=== PATIENT | male | born 2000 | race Caucasian/White ===

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

== ENCOUNTER 2018-03-06 15:41 | Inpatient (IN) | payer OTHER ==
[~2018-03-06] VITALS: Ht 165.1 cm; Wt 56.2 kg
[2018-03-06 15:45] VITALS: BP 123/81
[2018-03-06] MEDS ORDERED: predniSONE 20 MG TAB PO ONE (16:00)
[2018-03-06] MEDS ORDERED: ALBUTEROL SULFATE/IPRATROPIU 3 ML SOL IH ONE ×2 (16:00→18:45)
[2018-03-06] MEDS ORDERED: ALBUTEROL 0.083% 2.5 MG/3 ML NEBU INH ONE ×3 (16:00→19:25)
[2018-03-06] MEDS ORDERED: IBUPROFEN 600 MG TAB PO ONE (18:10)
[2018-03-06] MEDS ORDERED: IPRATROPIUM 0.02% 0.5 MG/2.5 ML NEBU INH ONE (19:25)
[2018-03-06] MEDS ORDERED: PRON INH (21:10)
[2018-03-06] MEDS ORDERED: DOCUSATE SODIUM 100 MG GELCAP PO PRN (21:15)
[2018-03-06] MEDS ORDERED: ALBUTEROL SULFATE/IPRATROPIU 3 ML SOL IH PRN (21:15)
[2018-03-06] MEDS ORDERED: HYDROcodone/APAP 7.5/325 MG 1 TAB PO PRN (21:15)
[2018-03-06] MEDS ORDERED: ONDANSETRON 4 MG/2 ML VIAL IM/IVP PRN (21:15)
[2018-03-06] MEDS ORDERED: ACETAMINOPHEN 325 MG TAB PO PRN (21:15)
[2018-03-06 21:48] LABS: BASOPHILS % (AUTO) 0.3 % (0.0-2.0); EOSINOPHILS % (AUTO) 0.1 % (0.0-4.0); HEMATOCRIT 48.7 % (36-52); HEMOGLOBIN 16.1 g/dL (12.0-18.0); LYMPHOCYTES # (AUTO) 0.3 K/uL (2.0-11.5); MEAN CORPUSCULAR HEMOGLOBIN 30 pg (27-31); MEAN CORPUSCULAR HGB CONC 33 g/dL (33-37); MEAN CORPUSCULAR VOLUME 90.6 fL (80-94); MONOCYTES % (AUTO) 0.3 % (1.7-9.3); NEUTROPHILS # (AUTO) 13.4 K/uL (1.8-7.7); NEUTROPHILS % (AUTO) 97.3 % (42.2-75.2); PLATELET COUNT (AUTO) 178 K/uL (140-450); RED BLOOD CELL COUNT(AUTO) 5.38 MIL/uL (4.20-6.10); RED CELL DISTRIBUTION WIDTH 13.1 % (11.6-13.7); WHITE BLOOD COUNT (AUTO) 13.8 K/uL (4.5-11.0)
[2018-03-06 22:00] VITALS: BP 117/75
[2018-03-06] MEDS ORDERED: FAMOTIDINE 20 MG/2 ML VIAL IV SCH (22:00)
[2018-03-06] MEDS ORDERED: LORATADINE 10 MG TAB PO SCH (22:00)
[2018-03-06 22:03] LABS: PROTHROMBIN TIME 9.9 secs (10.8-13.4)
[2018-03-06 22:05] LABS: ALBUMIN 4.4 g/dL (3.4-5.0); ANION GAP 18.9 (8-16); CARBON DIOXIDE 22.6 mmol/L (21-32); CREATININE 1.2 mg/dL (0.7-1.3); POTASSIUM 3.5 mmol/L (3.5-5.1)
[2018-03-06 22:12] LABS: CHOL/HDL RATIO 1.7 (1-4.5); FREE T4 (FREE THYROXINE) 1.16 ng/dL (0.76-1.46); PHOSPHORUS 2.2 mg/dL (2.5-4.9); THYROID STIMULATING HORMONE 0.69 uIU/mL (0.34-3.74)
[2018-03-06] MEDS: NACL 0.9% 1,000 ML IV SCH (22:24)
[2018-03-07] MEDS ORDERED: MAGNESIUM OXIDE 400 MG TAB PO SCH (00:30)
[2018-03-07] MEDS: ALBUTEROL SULFATE/IPRATROPIU 3 ML SOL IH SCH ×4 (01:18→19:44)
[2018-03-07 04:55] VITALS: BP 116/66
[2018-03-07] MEDS: methylPREDNISolone SS 125 MG/2 ML VIAL IVP SCH ×2 (05:07→13:51)
[2018-03-07] MEDS ORDERED: INSULIN LISPRO SLIDING SCALE 100 UNITS/ML VIAL SUBQ PRN (07:15)
[2018-03-07] MEDS ORDERED: DEXTROSE 50% 50 ML SYR IVP PRN (07:15)
[2018-03-07 07:30] LABS: BASOPHILS % (AUTO) 0.1 % (0.0-2.0); HEMATOCRIT 43.7 % (36-52); HEMOGLOBIN 14.5 g/dL (12.0-18.0); LYMPHOCYTES # (AUTO) 0.5 K/uL (2.0-11.5); MEAN CORPUSCULAR HEMOGLOBIN 30 pg (27-31); MEAN CORPUSCULAR HGB CONC 33 g/dL (33-37); MEAN CORPUSCULAR VOLUME 90.7 fL (80-94); MONOCYTES # (AUTO) 0.3 K/uL (0.8-1.0); MONOCYTES % (AUTO) 2.6 % (1.7-9.3); NEUTROPHILS % (AUTO) 92.3 % (42.2-75.2); PLATELET COUNT (AUTO) 181 K/uL (140-450); RED BLOOD CELL COUNT(AUTO) 4.82 MIL/uL (4.20-6.10); RED CELL DISTRIBUTION WIDTH 13.3 % (11.6-13.7); WHITE BLOOD COUNT (AUTO) 10.8 K/uL (4.5-11.0)
[2018-03-07] MEDS ORDERED: PNEUMOCOCCAL VACCINE 23 MCG/0.5 ML VIAL IMVAC SCH ×2 (07:30→10:00)
[2018-03-07] MEDS: BLOOD GLUCOSE MONITORING 1 DEV DEV FS SCH ×4 (07:30→21:41)
[2018-03-07 07:50] LABS: CARBON DIOXIDE 26.4 mmol/L (21-32); CREATININE 0.8 mg/dL (0.7-1.3); POTASSIUM 4.4 mmol/L (3.5-5.1)
[2018-03-07 08:00] VITALS: BP 112/60
[2018-03-07] MEDS ORDERED: SODIUM PHOS / POTASSIUM PHOS 1 PKT PDR PO SCH (08:57)
[2018-03-07] MEDS: LORATADINE 10 MG TAB PO SCH (09:49)
[2018-03-07] MEDS: MAGNESIUM OXIDE 400 MG TAB PO SCH (09:49)
[2018-03-07] MEDS: FAMOTIDINE 20 MG/2 ML VIAL IV SCH (09:49)
[2018-03-07] MEDS: NACL 0.9% 1,000 ML IV SCH (14:07)
[2018-03-07 16:00] VITALS: BP 110/48
[2018-03-07 18:24] LABS: BARBITURATE, URINE NEG. ng/ml (NEG <=200); BENZODIAZEPINE, URINE NEG. ng/mL (NEG <=200); CANNABINOID, URINE POS. ng/mL (NEG <=50); COCAINE, URINE NEG. ng/mL (NEG <=300); OPIATE, URINE NEG. ng/mL (NEG <=2000); PHENCYCLIDINE SCREEN,URINE NEG. ng/mL (NEG <=25)
[2018-03-07 20:00] VITALS: BP 115/58
[2018-03-07] MEDS: methylPREDNISolone SS 40 MG/ML VIAL IVP SCH (21:40)
[2018-03-08] MEDS: ALBUTEROL SULFATE/IPRATROPIU 3 ML SOL IH SCH ×3 (01:55→13:42)
[2018-03-08 04:00] VITALS: BP 110/58
[2018-03-08] MEDS: methylPREDNISolone SS 40 MG/ML VIAL IVP SCH (05:43)
[2018-03-08] MEDS: NACL 0.9% 1,000 ML IV SCH (06:31)
[2018-03-08] MEDS: BLOOD GLUCOSE MONITORING 1 DEV DEV FS SCH ×2 (07:35→11:30)
[2018-03-08 08:00] VITALS: BP 138/53
[2018-03-08] MEDS ORDERED: PRON INH (08:10)
[2018-03-08] MEDS ORDERED: ALBU0.0912 INH (08:13)
[2018-03-08] MEDS ORDERED: INFLUENZA VIRUS VACCINE QUAD 0.5 ML SYR IMVAC PRN (08:15)
[2018-03-08] MEDS ORDERED: PNEUMOCOCCAL VACCINE 23 MCG/0.5 ML VIAL IMVAC SCH (08:15)
[2018-03-08 08:20] LABS: HEMOGLOBIN 13.6 g/dL (12.0-18.0); LYMPHOCYTES # (AUTO) 0.8 K/uL (2.0-11.5); LYMPHOCYTES % (AUTO) 4.6 % (20.5-51.1); MEAN CORPUSCULAR HEMOGLOBIN 30 pg (27-31); MEAN CORPUSCULAR HGB CONC 33 g/dL (33-37); MEAN CORPUSCULAR VOLUME 92.3 fL (80-94); MONOCYTES # (AUTO) 0.8 K/uL (0.8-1.0); MONOCYTES % (AUTO) 5.1 % (1.7-9.3); NEUTROPHILS % (AUTO) 90.3 % (42.2-75.2); PLATELET COUNT (AUTO) 202 K/uL (140-450); RED BLOOD CELL COUNT(AUTO) 4.55 MIL/uL (4.20-6.10); WHITE BLOOD COUNT (AUTO) 16.6 K/uL (4.5-11.0)
[2018-03-08 09:19] LABS: ANION GAP 15.6 (8-16); CARBON DIOXIDE 23.5 mmol/L (21-32); CREATININE 0.8 mg/dL (0.7-1.3); POTASSIUM 4.1 mmol/L (3.5-5.1)
[2018-03-08 09:26] LABS: MAGNESIUM 1.9 mg/dL (1.8-2.4); PHOSPHORUS 3.8 mg/dL (2.5-4.9)
[2018-03-08] MEDS: FAMOTIDINE 20 MG/2 ML VIAL IV SCH (10:11)
[2018-03-08] MEDS: LORATADINE 10 MG TAB PO SCH (10:11)
[2018-03-08] MEDS: MAGNESIUM OXIDE 400 MG TAB PO SCH (10:11)
[2018-03-08 10:53] LABS: HEMATOCRIT 42.3 % (36-52); HEMOGLOBIN 13.7 g/dL (12.0-18.0); LYMPHOCYTES # (AUTO) 0.6 K/uL (2.0-11.5); MEAN CORPUSCULAR HEMOGLOBIN 30 pg (27-31); MEAN CORPUSCULAR HGB CONC 32 g/dL (33-37); MEAN CORPUSCULAR VOLUME 92.3 fL (80-94); MONOCYTES # (AUTO) 0.5 K/uL (0.8-1.0); MONOCYTES % (AUTO) 3.2 % (1.7-9.3); NEUTROPHILS # (AUTO) 13.8 K/uL (1.8-7.7); NEUTROPHILS % (AUTO) 92.8 % (42.2-75.2); PLATELET COUNT (AUTO) 195 K/uL (140-450); RED BLOOD CELL COUNT(AUTO) 4.59 MIL/uL (4.20-6.10); RED CELL DISTRIBUTION WIDTH 13.5 % (11.6-13.7); WHITE BLOOD COUNT (AUTO) 14.8 K/uL (4.5-11.0)
[2018-03-08 11:09] LABS: APPEARANCE,URINE CLEAR (CLEAR); BILIRUBIN,URINE NEGATIVE (NEGATIVE); BLOOD, URINE NEGATIVE (NEGATIVE); COLOR,URINE YELLOW (YELLOW); LEUKOCYTE ESTERASE ,URINE NEGATIVE (NEGATIVE); NITRITE, URINE NEGATIVE (NEGATIVE); PH,URINE 6.5 (5.0-9.0); UGLUCOSE NEGATIVE (NEGATIVE)
== END 2018-03-08 14:10 | disposition home or self-care (01) | DRG 141 ==
LOC: MED 15:41 → MTU 21:14
PROVIDERS: ADMIT General Practice; ATTEND General Practice
PROC: 3E0234Z Introduction of Serum, Toxoid and Vaccine into Muscle, Percutaneous Approach (ICD-10-PCS; principal; 2018-03-08)
PROC: 3E02340 Introduction of Influenza Vaccine into Muscle, Percutaneous Approach (ICD-10-PCS; 2018-03-08)
DX: J45.901 Unspecified asthma with (acute) exacerbation (principal); E87.3 Alkalosis; E83.39 Other disorders of phosphorus metabolism; E11.65 Type 2 diabetes mellitus with hyperglycemia; F90.9 Attention-deficit hyperactivity disorder, unspecified type; D72.829 Elevated white blood cell count, unspecified; E80.6 Other disorders of bilirubin metabolism; E78.2 Mixed hyperlipidemia; F43.9 Reaction to severe stress, unspecified; T38.0X5A Adverse effect of glucocorticoids and synthetic analogues, initial encounter; Y92.89 Other specified places as the place of occurrence of the external cause; Z23 Encounter for immunization; Z79.899 Other long term (current) drug therapy; Z88.8 Allergy status to other drugs, medicaments and biological substances; Z79.84 Long term (current) use of oral hypoglycemic drugs
CPT/HCPCS: 36415; 36600; 71045; 76700; 80048; 80053; 80305; 81003; 82150; 82803; 82948; 83036; 83690; 83735; 83880; 84100; 84436; 84439; 84443; 84479; 84484; 85025; 85610; 85730; 87081; 90658; 90732; 93005; 94640; 99285; J1815; J2920; J2930; J3490; J7030; J7512; J7613; J7620; J7644; Q0092

== ENCOUNTER 2018-05-26 17:55 | Emergency (ER) | payer OTHER ==
[~2018-05-26] VITALS: Ht 165.1 cm; Wt 59.0 kg
[~2018-05-26 17:55] MED LIST changes: +ALBU0.0912 INH; +PRON INH
[2018-05-26 18:19] VITALS: BP 105/59
--- NOTE | 2018-05-26 18:20 | NUR ---
BIB MOTHER C/O LEFT UPPER BACK PAIN X TODAY. AAOX4. PT STATES PAIN OF 10/10 WHEN BREATHING AND ACTIVITY. DENIES TRAUMA. EVEN AND UNLABORED BREATHING. BILATERAL LUNGS CLEAR UPON AUSCULTATION. HOB UP. BED RAILS UP X1. ON LOW BED POSITION, LOCKED. MADE AWARE OF PT STATUS. MED HX: ASTHMA
--- NOTE | 2018-05-26 19:15 | NUR ---
RECEIVED REPORT FROM MEGAN MUNOZ.
--- NOTE | 2018-05-26 19:15 | NUR ---
Pt report given to MEGAN BROCK AND MEGAN ZABALA. Transfer of care at this time.
--- NOTE | 2018-05-26 19:26 | NUR ---
ERPA EVALUATING AT BEDSIDE.
[2018-05-26] MEDS ORDERED: KETOROLAC 60 MG/2 ML VIAL IM ONE (19:35)
--- NOTE | 2018-05-26 19:39 | NUR ---
PT TAKEN TO XRAY
--- NOTE | 2018-05-26 19:45 | NUR ---
Mikey so in [facility] - 05/26/18 at 1945 by ZOHAIB pt
--- NOTE | 2018-05-26 19:45 | NUR ---
PT RETURN FROM XRAY
--- NOTE | 2018-05-26 20:11 | NUR ---
PA WITH PT
[2018-05-26 20:43] VITALS: BP 110/62
--- NOTE | 2018-05-26 20:43 | NUR ---
Patient discharged with v/s stable. Written and verbal after care instructions given and explained. Patient alert, oriented and verbalized understanding of instructions. Ambulatory with steady gait. All questions addressed prior to discharge. ID band removed. Patient advised to follow up with PMD. Rx of MOTRIN AND PREDNISONE given. Patient educated on indication of medication including possible reaction and side effects. Opportunity to ask questions provided and answered.
== END 2018-05-26 20:43 | disposition home or self-care (01) ==
LOC: MED 17:55
DX: M54.6 Pain in thoracic spine (principal); Z88.8 Allergy status to other drugs, medicaments and biological substances; Z79.899 Other long term (current) drug therapy
CPT/HCPCS: 71046; 81002; 96372; 99283; J1885

== ENCOUNTER 2018-05-27 19:25 | Emergency (ER) | payer OTHER ==
[~2018-05-27] VITALS: Ht 165.1 cm; Wt 59.0 kg
[2018-05-27 19:45] VITALS: BP 115/60
--- NOTE | 2018-05-27 21:40 | NUR ---
PT AMBULATED TO BED 10
--- NOTE | 2018-05-27 21:42 | NUR ---
PT CO EMESIS X 2 WITH LEFT SIDED UPPER BACK PAIN THAT IS 10/10, SHARP, CONSTANT. PT WAS SEEN IN ED YESTERDAY FOR SAME PAIN. DENIES SOB, CHEST PAIN. -- PMH: ASTHMA
[2018-05-27 21:45] LABS: ANION GAP 12.7 (8-16); CREATININE 1.1 mg/dL (0.7-1.3); POTASSIUM 3.7 mmol/L (3.5-5.1)
[2018-05-27 21:51] LABS: ALBUMIN 4.4 g/dL (3.4-5.0); TOTAL BILIRUBIN 2.5 mg/dL (0.0-1.0)
[2018-05-27] MEDS ORDERED: ONDANSETRON 4 MG ODT PO ONE (23:15)
[2018-05-27] MEDS ORDERED: KETOROLAC 30 MG/ML VIAL IM ONE (23:15)
[2018-05-27 23:50] VITALS: BP 108/68
--- NOTE | 2018-05-27 23:50 | NUR ---
Patient discharged with v/s stable. Written and verbal after care instructions given and explained. Patient alert, oriented and verbalized understanding of instructions. Ambulatory with steady gait. All questions addressed prior to discharge. ID band removed. Patient advised to follow up with PMD. Rx of ZOFRAN 4MG ODT AND NAPROSYN 500MG given. Patient educated on indication of medication including possible reaction and side effects. Opportunity to ask questions provided and answered.
== END 2018-05-27 23:50 | disposition home or self-care (01) ==
LOC: MED 19:25
DX: R11.2 Nausea with vomiting, unspecified (principal); M54.9 Dorsalgia, unspecified
CPT/HCPCS: 36415; 80053; 83690; 96372; 99283; J1885; Q0162

== ENCOUNTER 2018-06-30 19:38 | Emergency (ER) | payer OTHER ==
[~2018-06-30] VITALS: Ht 165.1 cm; Wt 59.0 kg
[2018-06-30 19:50] VITALS: BP 114/44
--- NOTE | 2018-06-30 19:50 | NUR ---
PT TRIAGED IN [facility]
--- NOTE | 2018-06-30 19:59 | NUR ---
PT C/O 8/10 EPIGASTRIC PAIN, NONRADIATING, CONTINUOUS FOR "PAST FEW HOURS" +N/V. ABD SOFT, FLAT, NONTENDER, BOWEL SOUNDS PRESENT X 4 QUADRANTS. DENIES CP/SOB. DENIES DYSURIA. ALSO C/O HEADACHE 8/10 ACHING. NO OTHER COMPLAINTS. PLACED IN [facility] WITH MOTHER AT CHAIRSIDE.
--- NOTE | 2018-06-30 20:40 | NUR ---
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
--- NOTE | 2018-06-30 20:47 | NUR ---
DR. CHRISTINA AT BEDSIDE FOR EVALUATION.
[2018-06-30] MEDS ORDERED: KETOROLAC 60 MG/2 ML VIAL IM ONE (20:50)
[2018-06-30] MEDS ORDERED: ONDANSETRON 4 MG ODT PO ONE (20:50)
--- NOTE | 2018-06-30 21:10 | NUR ---
PT REPORTS RELIEF OF PAIN NOW REPORTS PAIN AT 05/17. NO EPISODES OF N/V POST ZOFRAN ADMIN.
[2018-06-30 21:40] VITALS: BP 121/52
--- NOTE | 2018-06-30 21:40 | NUR ---
Patient discharged with v/s stable. Written and verbal after care instructions given and explained. Patient alert, oriented and verbalized understanding of instructions. Ambulatory with steady gait. All questions addressed prior to discharge. ID band removed. Patient advised to follow up with PMD. Rx of MOTRIN, ZOFRAN given. Patient educated on indication of medication including possible reaction and side effects. Opportunity to ask questions provided and answered.
== END 2018-06-30 21:41 | disposition home or self-care (01) ==
LOC: MED 19:38
DX: R10.13 Epigastric pain (principal); R19.7 Diarrhea, unspecified; R11.2 Nausea with vomiting, unspecified; J45.909 Unspecified asthma, uncomplicated; Z79.899 Other long term (current) drug therapy
CPT/HCPCS: 96372; 99283; J1885; Q0162

== ENCOUNTER 2018-09-11 20:34 | Emergency (ER) | payer OTHER ==
[~2018-09-11] VITALS: Ht 162.6 cm; Wt 49.9 kg
--- NOTE | 2018-09-11 20:39 | NUR ---
PT TAKEN TO ER BED 4 VIA WHEELCHAIR
[2018-09-11 20:40] VITALS: BP 131/71
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
--- NOTE | 2018-09-11 20:45 | NUR ---
DR. BLANCO BEDSIDE EVALUATING PT
--- NOTE | 2018-09-11 20:48 | NUR ---
VERBAL ORDER RECEIVED FROM DR. BLANCO FOR 2 MG IVP ATIVAN FOR PSYCHOSIS/AGITATION.
[2018-09-11] MEDS ORDERED: NACL 0.9% 1,000 ML IV ONE ×2 (20:50→22:10)
[2018-09-11] MEDS ORDERED: LORazepam 2 MG/ML VIAL IVP ONE (20:50)
[2018-09-11] MEDS ORDERED: LORazepam 2 MG/ML VIAL ONE (20:58)
--- NOTE | 2018-09-11 21:05 | NUR ---
PARENTS AT BEDSIDE.
--- NOTE | 2018-09-11 21:17 | NUR ---
EMT ATTEMPTING EKG AT BEDSIDE.
[2018-09-11 21:20] LABS: BASOPHILS % (AUTO) 0.3 % (0.0-2.0); EOSINOPHILS % (AUTO) 0.1 % (0.0-4.0); HEMATOCRIT 46.5 % (36-52); HEMOGLOBIN 15.4 g/dL (12.0-18.0); LYMPHOCYTES # (AUTO) 1.6 K/uL (2.0-11.5); LYMPHOCYTES % (AUTO) 11.1 % (20.5-51.1); MEAN CORPUSCULAR HEMOGLOBIN 30 pg (27-31); MEAN CORPUSCULAR HGB CONC 33 g/dL (33-37); MEAN CORPUSCULAR VOLUME 91.8 fL (80-94); MONOCYTES # (AUTO) 0.7 K/uL (0.8-1.0); MONOCYTES % (AUTO) 4.8 % (1.7-9.3); NEUTROPHILS # (AUTO) 12.4 K/uL (1.8-7.7); NEUTROPHILS % (AUTO) 83.7 % (42.2-75.2); PLATELET COUNT (AUTO) 279 K/uL (140-450); RED BLOOD CELL COUNT(AUTO) 5.06 MIL/uL (4.20-6.10); RED CELL DISTRIBUTION WIDTH 13.7 % (11.6-13.7); WHITE BLOOD COUNT (AUTO) 14.8 K/uL (4.5-11.0)
[2018-09-11 21:35] LABS: BARBITURATE, URINE NEG. ng/ml (NEG <=200); BENZODIAZEPINE, URINE NEG. ng/mL (NEG <=200); CANNABINOID, URINE POS. ng/mL (NEG <=50); COCAINE, URINE NEG. ng/mL (NEG <=300); OPIATE, URINE NEG. ng/mL (NEG <=2000); PHENCYCLIDINE SCREEN,URINE NEG. ng/mL (NEG <=25)
[2018-09-11 21:36] LABS: PROTHROMBIN TIME 10.8 secs (10.8-13.4)
[2018-09-11 21:38] LABS: ALBUMIN 4.9 g/dL (3.4-5.0); ANION GAP 23.8 (8-16); ASPARTATE AMINOTRANSFERASE 25 U/L (15-37); CHLORIDE 102 mmol/L (98-107); CREATININE 1.5 mg/dL (0.7-1.3); GFR ARICAN-AMERICAN 77 mL/min (>90); GLUCOSE 194 mg/dL (74-106); SODIUM SERUM 142 mmol/L (136-145); TOTAL BILIRUBIN 3.5 mg/dL (0.0-1.0); UREA NITROGEN, BLOOD 14 mg/dL (7-18)
[2018-09-11 21:41] LABS: POTASSIUM 2.8 mmol/L (3.5-5.1)
[2018-09-11 21:42] LABS: ACETAMINOPHEN < 0.5 ug/ml (10-30)
[2018-09-11 21:44] LABS: SALICYLATE < 2.8 mg/dL (2.8-20.0)
[2018-09-11] MEDS ORDERED: KCL 20 MEQ/WATER INJ PREMIX 100 ML IV ONE (21:50)
--- NOTE | 2018-09-11 22:00 | NUR ---
PT IS AWAKE AND IS ABLE TO STATE NAME AND PLACE. UNABLE TO PROVIDE ANY HISTORY ABOUT WHAT HAPPENED OR WHAT HE INGESTED.
[2018-09-11] MEDS ORDERED: HALOPERIDOL IM 5 MG/ML VIAL IM ONE (22:10)
--- NOTE | 2018-09-11 22:15 | NUR ---
PT IS HAVING INCREASED AGITATION; PULLING AT IV TUBING AND HYPERVENTILATING. PARENTS STATE HE IS C/O ANXIETY IN POLISH. DR. BLANCO NOTIFIED. ORDERS FOR IM HALDOL 5MG RECEIVED.
--- NOTE | 2018-09-11 22:49 | NUR ---
PT IS RESTING CALM AND COMFORTABLY IN BED. NO S/SX AGITATION OR ANXIETY NOTED. PT RESPONDS TO VOICE AND NODS WHEN ASKED "ARE YOU DOING OK?".
--- NOTE | 2018-09-11 23:45 | NUR ---
PT SLEEPING IN BED WITH VSS. NO S/SX AGITATION. PT AROUSABLE TO VOICE. SKIN PINK, WARM, DRY. BREATHING EVEN, UNLABORED.
--- NOTE | 2018-09-12 00:20 | NUR ---
PT SLEEPING IN BED WITH VSS. NO S/SX AGITATION. PT AROUSABLE TO VOICE. SKIN PINK, WARM, DRY. BREATHING EVEN, UNLABORED.
--- NOTE | 2018-09-12 01:15 | NUR ---
PT AWAKE, ASKING TO USE RR. PT AMBULATES TO RR WITH STEADY GAIT. A/O X 4. PT STATES HE WANTS TO GO HOME.
[2018-09-12 01:22] VITALS: BP 111/70
--- NOTE | 2018-09-12 01:22 | NUR ---
Patient discharged with v/s stable. Written and verbal after care instructions given and explained. Patient verbalized understanding. Ambulatory with steady gait. Accompanied by mom. All questions addressed prior to discharge. Advised to follow up with PMD.
== END 2018-09-12 01:22 | disposition home or self-care (01) ==
LOC: MED 20:34
DX: F12.10 Cannabis abuse, uncomplicated (principal); R40.4 Transient alteration of awareness; R45.1 Restlessness and agitation; R46.2 Strange and inexplicable behavior; J45.909 Unspecified asthma, uncomplicated; Z79.899 Other long term (current) drug therapy
CPT/HCPCS: 36415; 80053; 80305; 85025; 85610; 93005; 96372; 96374; 99284; G0480; G0482; J1630; J2060; J3480; J7030

== ENCOUNTER 2019-03-05 15:19 | Emergency (ER) | payer OTHER ==
[~2019-03-05] VITALS: Ht 167.6 cm; Wt 59.0 kg
[2019-03-05 15:27] VITALS: BP 133/73
--- NOTE | 2019-03-05 15:30 | NUR ---
to lobby a/w bed ambulatory
--- NOTE | 2019-03-05 16:56 | NUR ---
C/O THROAT PAIN WITH A HACKING MOIST COUGH AND CONGESTION 3 DAYS FULL CLEAR SPEECH, NO DROOLING OR MUFFLED VOICE NOTED
[2019-03-05 19:07] VITALS: BP 133/73
--- NOTE | 2019-03-05 19:08 | NUR ---
Patient discharged with v/s stable. Written and verbal after care instructions given and explained. Patient alert, oriented and verbalized understanding of instructions. Ambulatory with steady gait. All questions addressed prior to discharge. ID band removed. Patient advised to follow up with PMD. Rx of TAMIFLU/PHENERGAN given. Patient educated on indication of medication including possible reaction and side effects. Opportunity to ask questions provided and answered.
== END 2019-03-05 19:08 | disposition home or self-care (01) ==
LOC: MED 15:19
DX: J11.1 Influenza due to unidentified influenza virus with other respiratory manifestations (principal); J45.909 Unspecified asthma, uncomplicated; Z79.51 Long term (current) use of inhaled steroids
CPT/HCPCS: 99283

== ENCOUNTER 2019-04-15 13:38 | Emergency (ER) | payer OTHER ==
[~2019-04-15] VITALS: Ht 167.6 cm; Wt 59.0 kg
[2019-04-15 13:50] VITALS: BP 113/69
--- NOTE | 2019-04-15 14:20 | NUR ---
9/10 PAIN WITH COUGH
--- NOTE | 2019-04-15 14:20 | NUR ---
C/O NON-PRODUCTIVE COUGH, RINORRHEA X 3 DAYS LUNGS CLEAR BILTERALLY. RR EVEN AND UNLABORED. VS STABLE. PT ALERT AND AWAKE. PT ALSO REQUESTING REFILL FOR NEBULIZER. MED HX: ASTHMA
[2019-04-15 14:29] VITALS: BP 115/63
--- NOTE | 2019-04-15 14:29 | NUR ---
Patient discharged with v/s stable. Written and verbal after care instructions given and explained REGARDING UPPER RESP INFECTION. Patient alert, oriented and verbalized understanding of instructions. Ambulatory with steady gait. All questions addressed prior to discharge. ID band removed. Patient advised to follow up with PMD. Rx of PROMETHAZINE, IBUPROFEN, AND ALBUTEROL given. Patient educated on indication of medication including possible reaction and side effects. Opportunity to ask questions provided and answered.
== END 2019-04-15 14:10 | disposition home or self-care (01) ==
LOC: MED 13:38
DX: J06.9 Acute upper respiratory infection, unspecified (principal); J45.909 Unspecified asthma, uncomplicated; Z79.899 Other long term (current) drug therapy
CPT/HCPCS: 99283

== ENCOUNTER 2020-08-05 12:14 | Emergency (ER) | payer OTHER ==
[~2020-08-05] VITALS: Ht 167.6 cm; Wt 59.0 kg
[~2020-08-05 12:14] MED LIST changes: +ALBU-118 IH; -ALBU-136 IH
[2020-08-05 12:18] VITALS: BP 122/84
--- NOTE | 2020-08-05 12:28 | NUR ---
20 YEAR OLD MALE COMPLAINS OF SORE THROAT X YESTERDAY. PT DENIES SOB. PT STATES GOT BOTH DOSES OF COVID VACCINE. PT AOX4, BREATHING EVEN AND UNLABORED, SKIN WARM AND DRY. BED IN LOWEST POSITION, LOCKED, BED RAIL UPX1. PMH - DENIES ALLERGIES - NKA
--- NOTE | 2020-08-05 12:40 | NUR ---
RT at pt bedside.
[2020-08-05] MEDS: ALBUTEROL SULFATE/IPRATROPIU 3 ML SOL IH ONE (12:56)
[2020-08-05] MEDS ORDERED: ROBAC PO (13:48)
[2020-08-05] MEDS ORDERED: PRED20TA5 PO (13:48)
[2020-08-05 14:10] VITALS: BP 122/84
--- NOTE | 2020-08-05 14:10 | NUR ---
Patient discharged with v/s stable. Written and verbal after care instructions about asthma, cough given and explained. Patient alert, oriented and verbalized understanding of instructions. Ambulatory with steady gait. All questions addressed prior to discharge. ID band removed. Patient advised to follow up with PMD. Rx of deltasone, guaifenesin-codeine given. Patient educated on indication of medication including possible reaction and side effects. Opportunity to ask questions provided and answered.
[2020-08-07] MEDS ORDERED: PRON INH (17:53)
[2020-08-07] MEDS ORDERED: ALBU0.0912 IH (17:53)
[2020-08-07] MEDS ORDERED: IBUP-2213 PO (17:53)
[2020-08-07] MEDS ORDERED: PROM118S6 PO (17:53)
== END 2020-08-05 14:10 | disposition home or self-care (01) ==
LOC: MED 12:14
DX: J45.901 Unspecified asthma with (acute) exacerbation (principal); J02.9 Acute pharyngitis, unspecified; Z79.899 Other long term (current) drug therapy
CPT/HCPCS: 71045; 94640; 99283

== ENCOUNTER → 2020-08-07 | Emergency (ER) | payer OTHER ==
[~2020-08-07] VITALS: Ht 167.6 cm; Wt 54.9 kg
[~2020-08-07] MED LIST changes: +ALBU0.0912 IH; +IBUP-2213 PO; +PRED20TA5 PO; +PROM118S6 PO; +ROBAC PO
[2020-08-07 17:17] VITALS: BP 105/66
--- NOTE | 2020-08-07 17:34 | NUR ---
20 Y/O M BIB SELF FROM HOME, PT STATES HE HAS BEEN HAVING COUGH, FEVER, CHILLS AND SOB SINCE 08/03/20, PT WAS PREVIOUSLY SEEN FOR SAME SYMPTOMS FEW DAYS AGO AND SENT WITH MEDICATION. PT HAS MEDICATIONS, BUT HAS NOT TAKEN THEM FOR RELIEF. PT DOES NOT HAVE FEVER AT THIS TIME. DENIES N/V/D; SKIN IS PINK/WARM/DRY; AAOX4 WITH EVEN AND STEADY GAIT; LUNG CRACKLES BL WITH INSPIRATION AND EXPIRATION; HR EVEN AND REGULAR; PATIENT STATES PAIN OF 0/10 AT THIS TIME; VSS; PATIENT POSITIONED FOR COMFORT; HOB ELEVATED; BEDRAILS UP X2; BED DOWN. ER MD MADE AWARE OF PT STATUS. PMH: ASTHMA NKA
[2020-08-07 18:03] VITALS: BP 105/66
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
--- NOTE | 2020-08-07 18:04 | NUR ---
Patient discharged with v/s stable. Written and verbal after care instructions given and explained. Patient alert, oriented and verbalized understanding of instructions. Ambulatory with steady gait. All questions addressed prior to discharge. ID band removed. Patient advised to follow up with PMD. Rx of ALBUTEROL HFA, IBUPROFEN, PROMETHAZINE, ALBUTEROL 0.083% given. Patient educated on indication of medication including possible reaction and side effects. Opportunity to ask questions provided and answered.
== END | disposition home or self-care (01) ==
LOC: MED 16:32
DX: R50.9 Fever, unspecified (principal); Z20.822 Contact with and (suspected) exposure to COVID-19; M79.10 Myalgia, unspecified site; R68.83 Chills (without fever); J02.9 Acute pharyngitis, unspecified; R06.02 Shortness of breath; Z76.0 Encounter for issue of repeat prescription
CPT/HCPCS: 99283; U0003

== ENCOUNTER 2021-03-09 12:42 | Emergency (ER) | payer OTHER ==
[~2021-03-09] VITALS: Ht 167.6 cm; Wt 59.0 kg
[2021-03-09 13:07] VITALS: BP 122/87
[2021-03-09] MEDS ORDERED: IBUP-1842 PO (13:27)
== END 2021-03-09 14:30 | disposition home or self-care (01) ==
LOC: MED 12:42
DX: J02.9 Acute pharyngitis, unspecified (principal); Z20.822 Contact with and (suspected) exposure to COVID-19; J45.909 Unspecified asthma, uncomplicated; Z79.899 Other long term (current) drug therapy; Z01.84 Encounter for antibody response examination
CPT/HCPCS: 99283; U0003

== ENCOUNTER 2021-07-14 13:03 | Emergency (ER) | payer OTHER ==
[~2021-07-14] VITALS: Ht 167.6 cm; Wt 53.5 kg
[~2021-07-14 13:03] MED LIST changes: +IBUP-1842 PO
[2021-07-14 13:12] VITALS: BP 118/69
--- NOTE | 2021-07-14 15:01 | NUR ---
CALLED IN LOBBY; NO ANSWER AT THIS TIME.
--- NOTE | 2021-07-14 15:15 | NUR ---
2ND ATTEMPT; NO ANSWER IN ER LOBBY/PARKING LOT AT THIS TIME.
--- NOTE | 2021-07-14 15:32 | NUR ---
PATIENT LEFT WITHOUT BEING SEEN BY DR. ANGELO. NO FURTHER CARE PROVIDED FOR PATIENT.
--- NOTE | 2021-07-14 15:32 | NUR ---
NO ANSWER 3RD ATTEMPT.
== END 2021-07-14 15:32 | disposition left against medical advice (07) ==
LOC: MED 13:03
DX: M54.2 Cervicalgia (principal); Z53.21 Procedure and treatment not carried out due to patient leaving prior to being seen by health care provider

== ENCOUNTER 2021-12-06 07:47 | Emergency (ER) | payer OTHER ==
[~2021-12-06] VITALS: Ht 167.6 cm; Wt 51.3 kg
[2021-12-06 07:52] VITALS: BP 121/75
[2021-12-06] MEDS ORDERED: ALBU0.0912 IH (08:07)
--- NOTE | 2021-12-06 08:15 | NUR ---
21 Y/O MALE PRESENTS TO ED FOR MEDICATION REFILL ON ALBUTEROL. PT REPORTS HE IS UNABLE TO GET APPT WITH PCP. PT DENIES ANY COMPLAINTS AT THIS TIME. DENIES SOB. PT A/O X4 WITH EVEN AND UNLABORED RESPIRATIONS PMH:ASTHMA NKDA
--- NOTE | 2021-12-06 08:16 | NUR ---
Patient discharged with v/s stable. Written and verbal after care instructions ABOUT ASTHMA given and explained. Patient alert, oriented and verbalized understanding of instructions. Ambulatory with steady gait. All questions addressed prior to discharge. ID band removed. Patient advised to follow up with PMD. Rx of ALBUTEROL given. Patient educated on indication of medication including possible reaction and side effects. Opportunity to ask questions provided and answered.
== END 2021-12-06 08:16 | disposition home or self-care (01) ==
LOC: MED 07:47
DX: J45.909 Unspecified asthma, uncomplicated (principal); Z76.0 Encounter for issue of repeat prescription; Z79.899 Other long term (current) drug therapy
CPT/HCPCS: 99281

== ENCOUNTER 2022-01-07 09:38 | Emergency (ER) | payer OTHER ==
[~2022-01-07] VITALS: Ht 162.6 cm; Wt 63.5 kg
[2022-01-07 10:04] VITALS: BP 116/72
[2022-01-07 11:47] VITALS: BP 122/70
--- NOTE | 2022-01-07 11:48 | NUR ---
Patient discharged with v/s stable. Written and verbal after care instructions given and explained. Patient verbalized understanding. Ambulatory with . All questions addressed prior to discharge. Advised to follow up with PMD.
== END 2022-01-07 11:48 | disposition home or self-care (01) ==
LOC: MED 09:38
DX: G51.32 Clonic hemifacial spasm, left (principal); J45.909 Unspecified asthma, uncomplicated
CPT/HCPCS: 99281

== ENCOUNTER 2022-01-08 12:26 | Emergency (ER) | payer OTHER ==
[~2022-01-08] VITALS: Ht 167.6 cm; Wt 53.1 kg
[2022-01-08 12:58] VITALS: BP 97/48
--- NOTE | 2022-01-08 13:05 | NUR ---
Patient ambulated to bed 3.
--- NOTE | 2022-01-08 13:50 | NUR ---
PT C/O FACIAL TWITCHING TO LEFT SIDE OF FACE. SEEN IN ED YESTERDAY FOR SAME COMPLAINTS. PT STATES "I FEEL LIKE SOMETHING IS MOVING IN MY FACE"
[2022-01-08 14:28] LABS: BASOPHILS % (AUTO) 0.7 % (0.0-2.0); EOSINOPHILS # (AUTO) 0.1 K/uL (0-0.4); EOSINOPHILS % (AUTO) 2.1 % (0.0-4.0); HEMATOCRIT 42.4 % (36-52); HEMOGLOBIN 14.6 g/dL (12.0-18.0); LYMPHOCYTES # (AUTO) 1.4 K/uL (2.0-11.5); LYMPHOCYTES % (AUTO) 27.7 % (20.5-51.1); MEAN CORPUSCULAR HEMOGLOBIN 31 pg (27-31); MEAN CORPUSCULAR HGB CONC 35 g/dL (33-37); MEAN CORPUSCULAR VOLUME 89.6 fL (80-94); MONOCYTES # (AUTO) 0.5 K/uL (0.8-1.0); MONOCYTES % (AUTO) 9.1 % (1.7-9.3); NEUTROPHILS % (AUTO) 60.4 % (42.2-75.2); PLATELET COUNT (AUTO) 185 K/uL (140-450); RED BLOOD CELL COUNT(AUTO) 4.74 MIL/uL (4.20-6.10); RED CELL DISTRIBUTION WIDTH 13.2 % (11.6-13.7)
[2022-01-08 14:49] LABS: ALBUMIN 3.8 g/dL (3.4-5.0); ANION GAP 11.5 (8-16); CARBON DIOXIDE 28.3 mmol/L (21-32); POTASSIUM 3.8 mmol/L (3.5-5.1); TOTAL BILIRUBIN 1.4 mg/dL (0.0-1.0)
--- NOTE | 2022-01-08 15:25 | NUR ---
Patient discharged with v/s stable. Written and verbal after care instructions given and explained. Patient verbalized understanding. Ambulatory with steady gait. All questions addressed prior to discharge. Advised to follow up with PMD.
== END 2022-01-08 15:25 | disposition home or self-care (01) ==
LOC: MED 12:26
DX: R25.3 Fasciculation (principal); J45.909 Unspecified asthma, uncomplicated
CPT/HCPCS: 36415; 80053; 85025; 99283

== ENCOUNTER 2023-02-15 16:05 | Emergency (ER) | payer OTHER ==
[~2023-02-15] VITALS: Ht 165.1 cm; Wt 57.7 kg
[2023-02-15 16:12] VITALS: BP 106/56; PULSE 89; RESP 18; TEMP 99.3; O2SAT 98
[2023-02-15] MEDS ORDERED: IBUPROFEN 600 MG TAB PO ONE (16:35)
[2023-02-15] MEDS ORDERED: IBUP-2213 PO (16:38)
[2023-02-15 17:16] VITALS: BP 110/60; PULSE 80; RESP 16; TEMP 98; O2SAT 99
== END 2023-02-15 17:16 | disposition home or self-care (01) ==
LOC: MED 16:12
DX: S09.90XA Unspecified injury of head, initial encounter (principal); J45.909 Unspecified asthma, uncomplicated; Z79.899 Other long term (current) drug therapy; X58.XXXA Exposure to other specified factors, initial encounter; Y93.89 Activity, other specified; Y92.89 Other specified places as the place of occurrence of the external cause; Y99.8 Other external cause status
CPT/HCPCS: 99282

== ENCOUNTER 2023-06-05 17:02 | Emergency (ER) | payer OTHER ==
[~2023-06-05] VITALS: Ht 167.6 cm; Wt 59.0 kg
[2023-06-05 17:38] VITALS: BP 103/71; PULSE 70; RESP 18; TEMP 97.8; O2SAT 98
[2023-06-05 18:56] LABS: APPEARANCE,URINE CLEAR (CLEAR); BILIRUBIN,URINE NEGATIVE (NEGATIVE); BLOOD, URINE NEGATIVE (NEGATIVE); COLOR,URINE YELLOW (YELLOW); LEUKOCYTE ESTERASE ,URINE NEGATIVE (NEGATIVE); NITRITE, URINE NEGATIVE (NEGATIVE); PH,URINE 7.5 (5.0-9.0); PROTEIN,URINE NEGATIVE (NEGATIVE); UGLUCOSE NEGATIVE (NEGATIVE)
[2023-06-05 19:10] LABS: BASOPHILS % (AUTO) 0.5 % (0.0-2.0); EOSINOPHILS # (AUTO) 0.2 K/uL (0-0.4); EOSINOPHILS % (AUTO) 3.3 % (0.0-4.0); HEMATOCRIT 42.9 % (36-52); HEMOGLOBIN 14.8 g/dL (12.0-18.0); LYMPHOCYTES # (AUTO) 1.6 K/uL (2.0-11.5); LYMPHOCYTES % (AUTO) 24.8 % (20.5-51.1); MEAN CORPUSCULAR HEMOGLOBIN 31 pg (27-31); MEAN CORPUSCULAR HGB CONC 35 g/dL (33-37); MEAN CORPUSCULAR VOLUME 88.8 fL (80-94); MONOCYTES # (AUTO) 0.5 K/uL (0.8-1.0); MONOCYTES % (AUTO) 8.1 % (1.7-9.3); NEUTROPHILS # (AUTO) 4.1 K/uL (1.8-7.7); NEUTROPHILS % (AUTO) 63.3 % (42.2-75.2); PLATELET COUNT (AUTO) 176 K/uL (140-450); RED BLOOD CELL COUNT(AUTO) 4.83 MIL/uL (4.20-6.10); RED CELL DISTRIBUTION WIDTH 13.8 % (11.6-13.7); WHITE BLOOD COUNT (AUTO) 6.5 K/uL (4.8-10.8)
[2023-06-05 19:24] LABS: ALBUMIN 4.1 g/dL (3.4-5.0); ANION GAP 10.2 (8-16); CALCIUM 8.7 mg/dL (8.5-10.1); CARBON DIOXIDE 29.4 mmol/L (21-32); CREATININE 1.1 mg/dL (0.6-1.3); POTASSIUM 3.6 mmol/L (3.5-5.1); TOTAL BILIRUBIN 1.6 mg/dL (0.0-1.0); TOTAL PROTEIN, SERUM 7.4 g/dL (6.4-8.2)
[2023-06-05] MEDS ORDERED: LIDOCAINE MPF 1% 5 ML ONE (19:27)
[2023-06-05] MEDS ORDERED: cefTRIAXone 500 MG VIAL ONE (19:27)
[2023-06-05] MEDS ORDERED: DOXY-487 PO (19:27)
[2023-06-05] MEDS: cefTRIAXone 500 MG in LIDOCAINE MPF 1% 1 ML IM ONE (19:38)
== END 2023-06-05 20:00 | disposition home or self-care (01) ==
LOC: MED 17:02
DX: R10.13 Epigastric pain (principal); R30.0 Dysuria; R10.33 Periumbilical pain; K59.00 Constipation, unspecified; R10.30 Lower abdominal pain, unspecified; Z11.3 Encounter for screening for infections with a predominantly sexual mode of transmission; J45.909 Unspecified asthma, uncomplicated; Z79.899 Other long term (current) drug therapy
CPT/HCPCS: 36415; 74022; 80053; 81003; 83690; 85025; 87491; 96372; 99284; J0696; J2001

== ENCOUNTER 2023-06-12 08:55 | Emergency (ER) | payer OTHER ==
[~2023-06-12] VITALS: Ht 167.6 cm; Wt 59.0 kg
[~2023-06-12 08:55] MED LIST changes: +DOXY-487 PO
[2023-06-12 09:00] VITALS: BP 122/73; PULSE 93; RESP 19; TEMP 98.8; O2SAT 98
[2023-06-12] MEDS: predniSONE 20 MG TAB PO ONE (10:00)
[2023-06-12] MEDS: guaiFENesin DM 200/20 MG-10 ML 10 ML UDC PO ONE (10:01)
[2023-06-12] MEDS: ALBUTEROL SULFATE/IPRATROPIU 3 ML SOL IH ONE (10:05)
[2023-06-12] MEDS ORDERED: PRED20TA5 PO ×2 (11:10→19:37)
[2023-06-12] MEDS ORDERED: GUAI10LI4 PO ×2 (11:10→19:37)
[2023-06-12] MEDS ORDERED: ALBU0.0912 IH ×2 (11:10→19:37)
[2023-06-12 11:19] VITALS: BP 118/81; PULSE 85; RESP 16; TEMP 97.5; O2SAT 97
== END 2023-06-12 11:18 | disposition home or self-care (01) ==
LOC: MED 08:55
DX: J06.9 Acute upper respiratory infection, unspecified (principal); J45.909 Unspecified asthma, uncomplicated; Z79.1 Long term (current) use of non-steroidal anti-inflammatories (NSAID); Z79.899 Other long term (current) drug therapy
CPT/HCPCS: 94640; 99283; J7512

== ENCOUNTER 2023-06-25 05:00 | Emergency (ER) | payer OTHER ==
[~2023-06-25] VITALS: Ht 167.6 cm; Wt 57.2 kg
[~2023-06-25 05:00] MED LIST changes: +GUAI10LI4 PO
[2023-06-25 05:08] VITALS: BP 122/65; PULSE 89; RESP 16; TEMP 98.7; O2SAT 97
[2023-06-25 05:14] VITALS: BP 122/65; PULSE 89; RESP 16; TEMP 98.7; O2SAT 97
[2023-06-25] MEDS ORDERED: FLUC200T PO (05:49)
[2023-06-25] MEDS ORDERED: ACYC400T14 PO (05:49)
[2023-06-25] MEDS ORDERED: KETO2CRE3 TP (05:58)
== END 2023-06-25 06:00 | disposition home or self-care (01) ==
LOC: MED 05:00
DX: B37.42 Candidal balanitis (principal); R10.9 Unspecified abdominal pain; R19.7 Diarrhea, unspecified; J45.909 Unspecified asthma, uncomplicated; Z79.1 Long term (current) use of non-steroidal anti-inflammatories (NSAID); Z79.899 Other long term (current) drug therapy
CPT/HCPCS: 99282